=== PATIENT | male | born 1985 | race African-American/Black ===

== ENCOUNTER 2017-10-19 17:47 | Emergency (ER) | payer SELFPAY ==
[~2017-10-19] VITALS: Ht 188 cm; Wt 124.7 kg
[2017-10-19 17:59] VITALS: BP 159/107
[2017-10-19] MEDS ORDERED: DIPHTH,PERTUSS(ACELL),TET TOX 0.5 ML DISP.SYRIN. VAX IM ONE ×2 (18:39→18:45)
--- NOTE | 2017-10-19 18:48 | PHYS DOC ---
Past Medical History Past Medical History: No Pertinent History Past Surgical History: Tonsillectomy Alcohol Use: None Drug Use: None Adult General Chief Complaint Chief Complaint: ABSCESS HPI HPI Patient is a 32 year old male who presents with left breast abscess that he noted one week ago. Patient denies any fever or drainage from the area. Review of Systems Review of Systems Constitutional: Denies fever or chills [] Musculoskeletal: Denies back pain or joint pain [] Integument: left breast abscess Neurologic: Denies headache, focal weakness or sensory changes [] All other systems were reviewed and found to be within normal limits, except as documented in this note. Current Medications Current Medications Current Medications Medications (Trade) Dose Ordered Sig/Xavi Start Time Stop Time Status Last Admin Dose Admin Diphtheria/ Tetanus/Acell Pertussis (Boostrix) 0.5 ml STK-MED ONCE 10/19/17 18:39 10/19/17 18:40 DC Allergies Allergies Allergies Coded Allergies Type Severity Reaction Last Updated Verified No Known Drug Allergies 10/19/17 No Physical Exam Physical Exam Constitutional: Well developed, well nourished, no acute distress, non-toxic appearance. [] Skin: Warm, dry, and left breast at the 9 o'clock position with a none indurated area of cellulitis approximately 3 x 3 cm not involving the nipple or arteriolar. Area is firm. Area is warm to touch. There is no drainage from the area. Back: No tenderness, no CVA tenderness. [] Extremities: No tenderness, no cyanosis, no clubbing, ROM intact, no edema. [] Neurologic: Alert and oriented X 3, normal motor function, normal sensory function, no focal deficits noted. [] Psychologic: Affect normal, judgement normal, mood normal. [] Current Patient Data Vital Signs Vital Signs Date Time Temp Pulse Resp B/P (MAP) Pulse Ox O2 Delivery O2 Flow Rate FiO2 10/19/17 17:59 98.1 74 16 97 Room Air 98.1 EKG EKG [] Radiology/Procedures Radiology/Procedures [] Course & Med Decision Making Course & Med Decision Making Pertinent Labs and Imaging studies reviewed. (See chart for details) Patient has an abscess and cellulitis of the left breast that is not ready to be drained. Tetanus was updated. Warm compresses recommended to the area. Provided recommended to the area. Discharged on Bactrim. Provided return precautions. Follow-up with the PCP in 1-2 weeks. Jonny Disclaimer Jonny Disclaimer This electronic medical record was generated, in whole or in part, using a voice recognition dictation system. Departure Departure Impression: Primary Impression: Abscess of left breast Additional Impression: Cellulitis of left breast Disposition: HOME, SELF-CARE Condition: STABLE Referrals: NO PCP (PCP) Follow-up with your doctor in one week Patient Instructions: Abscess, Cellulitis, [id number] Additional Instructions: You were seen for an abscess of the right breast. Buy [id number] PRED and apply to the area to help bring it to a head. Apply warm compresses to the area twice a day. Take the prescribed antibiotics to completion. Come back to the ED at any point symptoms worsen. Scripts Tramadol Hcl (ULTRAM) 50 Mg Tablet 1 TAB PO Q6HRS, #30 TAB Prov: TRISTON CASSIDY APRN 10/19/17 Sulfamethoxazole/Trimethoprim (BACTRIM DS TABLET) 1 Each Tablet 1 TAB PO BID, #20 TAB Prov: TRISTON CASSIDY APRN 10/19/17 Problem Qualifiers TRISTON CASSIDY APRN Oct 19, 2017 18:47
[2017-10-19] MEDS ORDERED: TRAM-48 PO (18:51)
[2017-10-19] MEDS ORDERED: SULF1TAB24 PO (18:51)
== END 2017-10-19 18:56 | disposition home or self-care (01) ==
LOC: ER 17:47
DX: N61.1 Abscess of the breast and nipple (principal)
CPT/HCPCS: 90471; 90715; 99283-25